=== PATIENT | female | born 1945 | race African-American/Black ===

== ENCOUNTER 2016-04-05 16:17 | Inpatient (IN) | payer MEDICARE, MEDICAID ==
[~2016-04-05] VITALS: Ht 157.5 cm; Wt 54.0 kg
[~2016-04-05 16:17] MED LIST: ALDACTONE 25MG25 M1 PO; ALLOPURINOL100 MG PO; AMITRIPTYLINE H25 M1 PO; APRESOLINE 25MG25 MG PO; ASPI325T6 PO; ASPIR-LOW81 MG PO; ASPIRIN 81M81 MG/TA2 PO; ASPIRIN E.C. 8181 MG PO; BENTYL 10MG10 MG/CAP PO; BYSTOLIC20 MG PO; CALCIUM CARB W/1 TA1 PO; CARAFATE 1GM1 G PO; CARISOPRODOL350 MG PO; CATAPRES 0.1MG0.1 MG PO; CATAPRES-TTS 10.1 M1 TD; CATAPRES-TTS 30.3 MG TD; CELEXA 20MG20 MG/TAB PO; COLACE 100100 MG/CAP PO; CYCLOBENZAPRINE10 MG PO; CYMBALTA 60MG60 MG PO; DUO-KAPS1 CAP PO; FERROUS SU325 MG/TAB PO; FOSAMAX PLUS D1 TAB PO; HCTZ 25MG25 MG PO; HCTZ12.5TAB PO; INDOMETHACIN50 MG PO; LIPITOR20 MG PO; LISINOPRIL PO; LOPRESSOR 550 MG/TAB PO; MULTAQ400 MG PO; NORCO 325 MG-51 TAB PO; NORVASC 10MG10 MG PO; NORVASC10 MG PO; PHENERGAN 25 TA25 MG PO; PREVACID 30MG30 M1 PO; PREVACID 30MG30 MG PO; PRINIVIL20 MG PO; PROAIR HFA0.09 MG/AC IH; RT ADVAIR 228 DISKUS IH; SPIRIVA INH IH; TOPROL XL100 MG PO; TUDORZA IH; VICODIN 5/5001 UDTAB PO; VITAMINC500CH PO; VOLTAREN GEL 1%1 TU TP; WELLBUTRIN XL300 M1 PO; XANAX0.25 MG PO; ZANTAC 150150 MG PO; ZESTRIL 10MG10 MG PO; ZESTRIL 20MG TA20 MG PO; ZYLOPRIM 100MG100 MG PO
[2016-04-05 16:40] VITALS: BP 180/67; PULSE 67; TEMP 99.9
[2016-04-05] MEDS ORDERED: LOPRESSOR 550 MG/TAB PO (16:41)
[2016-04-05] MEDS ORDERED: ASPIRIN 81M81 MG/TA2 PO (16:44)
[2016-04-05] MEDS ORDERED: LOVENOX 3030 MG/0.3 SQ (17:01)
[2016-04-05 18:04] VITALS: BP 179/77; PULSE 68; TEMP 99.6
[2016-04-05 18:39] LABS: BASO # 0.1 (0.0-0.2); BASO % 0.6 % (0.0-2.0); EOS # 0.2 (0.0-0.7); EOS % 2.1 % (0-4.0); GRAN # 7.2 (1.4-6.5); GRAN % 79.3 % (42.2-75.2); LYMPH # 0.8 (1.2-3.4); LYMPH % 8.5 % (20.0-51.0); MEAN CELL VOLUME 84 fl (80.0-100.0); MEAN CORPUSCULAR HGB CONC 32 g/dl (33.0-37.0); MEAN PLATELET VOLUME 11.7 fl (7.4-10.4); MONO # 0.8 (0.1-0.6); MONO % 9.3 % (1.7-9.3); PLATELET COUNT 148 K/mm3 (130-400); RED BLOOD COUNT 3.72 M/mm3 (4.10-5.30); REDCELL DISTRIBUTION WIDTH-CV 16.2 % (11.5-14.5)
[2016-04-05 18:46] LABS: HEMATOCRIT 31.4 % (37.0-47.0); HEMOGLOBIN 10.1 g/dl (12.5-16.0); MEAN CORPUSCULAR HEMOGLOBIN 27 pg (27.0-31.0)
[2016-04-05 18:51] LABS: ADJUSTED CALCIUM 9.8 mg/dL (8.4-10.2); ALBUMIN 3.4 gm/dL (3.5-5.0); BILIRUBIN,TOTAL 0.8 mg/dL (0.0-1.0); C-REACTIVE PROTEIN 2.9 mg/dL (0.0-0.9); CALCIUM 9.3 mg/dL (8.4-10.2); CREATININE, serum 1.6 mg/dL (0.52-1.25); INR 1.1 (0.8-3.0); POTASSIUM 4.9 mmol/L (3.4-5.0); PROTHROMBIN TIME 12.5 SECONDS (9.7-12.8); TOTAL PROTEIN 6.7 gm/dL (6.4-8.2)
[2016-04-05 19:11] LABS: ERYTHROCYTE SEDIMENTATION RATE 25 mm/hr (0-30)
[2016-04-05 20:43] VITALS: BP 158/66; PULSE 88; TEMP 98
[2016-04-05 21:31] LABS: PH 5 (5-8); SQUAMOUS EPITHELIAL 0-2 /hpf; URINE APPEARANCE Hazy; URINE BACTERIA Many /hpf; URINE BILIRUBIN Negative (NEGATIVE); URINE BLOOD Negative (NEGATIVE); URINE COLOR Yellow; URINE GLUCOSE Negative (NEGATIVE); URINE KETONE Negative (NEGATIVE); URINE RBC 0-2 /hpf; URINE UROBILINOGEN Negative (NEGATIVE); URINE WBC >50 /hpf
[2016-04-06] VITALS (8 sets, daily range): BP systolic 148–198; BP diastolic 64–81; PULSE 63–98; TEMP 98–98.9
[2016-04-06 11:04] LABS: ALBUMIN 2.9 gm/dL (3.5-5.0); CALCIUM 9.1 mg/dL (8.4-10.2); CREATININE, serum 1.41 mg/dL (0.52-1.25); POTASSIUM 5.2 mmol/L (3.4-5.0); TOTAL PROTEIN 5.9 gm/dL (6.4-8.2)
[2016-04-06 11:17] LABS: BILIRUBIN,DIRECT 0.4 mg/dL (0.0-0.4); BILIRUBIN,TOTAL 0.6 mg/dL (0.0-1.0)
[2016-04-07 00:29] VITALS: BP 154/80; PULSE 68
[2016-04-07 04:57] VITALS: BP 155/85; PULSE 65; TEMP 98
[2016-04-07 07:54] LABS: BASO % 0.4 % (0.0-2.0); EOS # 0.1 (0.0-0.7); EOS % 1.1 % (0-4.0); GRAN # 7.8 (1.4-6.5); GRAN % 81.9 % (42.2-75.2); LYMPH # 0.7 (1.2-3.4); LYMPH % 7.4 % (20.0-51.0); MEAN CELL VOLUME 87 fl (80.0-100.0); MEAN CORPUSCULAR HGB CONC 32 g/dl (33.0-37.0); MEAN PLATELET VOLUME 12.7 fl (7.4-10.4); MONO # 0.8 (0.1-0.6); MONO % 8.8 % (1.7-9.3); PLATELET COUNT 153 K/mm3 (130-400); RED BLOOD COUNT 3.25 M/mm3 (4.10-5.30); REDCELL DISTRIBUTION WIDTH-CV 16.4 % (11.5-14.5); WHITE BLOOD COUNT 9.5 K/mm3 (4.8-10.8)
[2016-04-07 08:00] LABS: HEMATOCRIT 28.1 % (37.0-47.0); HEMOGLOBIN 8.9 g/dl (12.5-16.0); MEAN CORPUSCULAR HEMOGLOBIN 27 pg (27.0-31.0)
[2016-04-07 08:10] LABS: ADJUSTED CALCIUM 9.6 mg/dL (8.4-10.2); BILIRUBIN,TOTAL 0.6 mg/dL (0.0-1.0); C-REACTIVE PROTEIN 6.5 mg/dL (0.0-0.9); CALCIUM 8.8 mg/dL (8.4-10.2); CREATININE, serum 1.4 mg/dL (0.52-1.25); POTASSIUM 4.7 mmol/L (3.4-5.0); TOTAL PROTEIN 6.3 gm/dL (6.4-8.2)
[2016-04-07 08:41] LABS: ERYTHROCYTE SEDIMENTATION RATE 38 mm/hr (0-30)
[2016-04-07 09:42] VITALS: BP 138/58; PULSE 63; TEMP 98.3
[2016-04-07 13:33] VITALS: BP 153/58; PULSE 67; TEMP 98.8
[2016-04-07 17:30] VITALS: BP 151/74; PULSE 71; TEMP 99.3
[2016-04-07 21:47] VITALS: BP 158/70; PULSE 65; TEMP 98.4
[2016-04-08] VITALS (13 sets, daily range): BP systolic 117–194; BP diastolic 56–71; PULSE 58–77; TEMP 98–100
[2016-04-08 07:36] LABS: BASO % 0.4 % (0.0-2.0); EOS # 0.2 (0.0-0.7); EOS % 2.5 % (0-4.0); GRAN # 7.7 (1.4-6.5); GRAN % 83.3 % (42.2-75.2); MEAN CELL VOLUME 87 fl (80.0-100.0); MEAN CORPUSCULAR HGB CONC 32 g/dl (33.0-37.0); MEAN PLATELET VOLUME 13.9 fl (7.4-10.4); MONO # 0.7 (0.1-0.6); MONO % 7.4 % (1.7-9.3); PLATELET COUNT 157 K/mm3 (130-400); RED BLOOD COUNT 3.15 M/mm3 (4.10-5.30); REDCELL DISTRIBUTION WIDTH-CV 16.4 % (11.5-14.5); WHITE BLOOD COUNT 9.2 K/mm3 (4.8-10.8)
[2016-04-08 08:06] LABS: ADJUSTED CALCIUM 10.1 mg/dL (8.4-10.2); ALBUMIN 2.8 gm/dL (3.5-5.0); BILIRUBIN,TOTAL 0.6 mg/dL (0.0-1.0); CALCIUM 9.1 mg/dL (8.4-10.2); CREATININE, serum 1.26 mg/dL (0.52-1.25); POTASSIUM 4.8 mmol/L (3.4-5.0); TOTAL PROTEIN 6.1 gm/dL (6.4-8.2)
[2016-04-08 08:16] LABS: HEMATOCRIT 27.5 % (37.0-47.0); HEMOGLOBIN 8.7 g/dl (12.5-16.0); MEAN CORPUSCULAR HEMOGLOBIN 28 pg (27.0-31.0)
[2016-04-08 08:17] LABS: LYMPH # 0.6 (1.2-3.4)
[2016-04-08 08:42] LABS: INR 1.2 (0.8-3.0); PROTHROMBIN TIME 13.1 SECONDS (9.7-12.8)
[2016-04-08 17:24] LABS: HEMATOCRIT 28.3 % (37.0-47.0); HEMOGLOBIN 8.7 g/dl (12.5-16.0)
[2016-04-09] VITALS (7 sets, daily range): BP systolic 117–143; BP diastolic 50–74; PULSE 58–70; TEMP 97.9–98.5
[2016-04-09 09:57] LABS: MEAN CELL VOLUME 88 fl (80.0-100.0); MEAN CORPUSCULAR HGB CONC 31 g/dl (33.0-37.0); MEAN PLATELET VOLUME 13.2 fl (7.4-10.4); PLATELET COUNT 213 K/mm3 (130-400); RED BLOOD COUNT 2.87 M/mm3 (4.10-5.30); REDCELL DISTRIBUTION WIDTH-CV 16.3 % (11.5-14.5); WHITE BLOOD COUNT 9.9 K/mm3 (4.8-10.8)
[2016-04-09 10:01] LABS: ALBUMIN 2.8 gm/dL (3.5-5.0); BILIRUBIN,TOTAL 0.5 mg/dL (0.0-1.0); CREATININE, serum 1.52 mg/dL (0.52-1.25); POTASSIUM 4.8 mmol/L (3.4-5.0); TOTAL PROTEIN 5.9 gm/dL (6.4-8.2)
[2016-04-09 10:15] LABS: ADD PATHOLOGY DIFF REVIEW NO; HEMATOCRIT 25.1 % (37.0-47.0); HEMOGLOBIN 7.8 g/dl (12.5-16.0); MEAN CORPUSCULAR HEMOGLOBIN 27 pg (27.0-31.0)
[2016-04-09 14:12] LABS: BAND 2 % (0-10); NEUTROPHILS 85 % (42.0-75.2); PLATELET ESTIMATE NORMAL (NORMAL); TOTAL CELLS COUNTED 100
[2016-04-09 14:14] LABS: ANISOCYTOSIS 1+; OVALOCYTES 1+; POIKILOCYTOSIS 2+; POLYCHROMASIA 1+; SCHISTOCYTES 1+
[2016-04-09 14:16] LABS: BURR CELLS 1+; TEAR DROP CELLS 1+
[2016-04-10] VITALS (10 sets, daily range): BP systolic 117–157; BP diastolic 49–66; PULSE 58–66; TEMP 97.9–99.1
[2016-04-10 08:24] LABS: CALCIUM 8.9 mg/dL (8.4-10.2); CREATININE, serum 1.91 mg/dL (0.52-1.25); POTASSIUM 4.6 mmol/L (3.4-5.0)
[2016-04-10 09:46] LABS: HEMATOCRIT 20.6 % (37.0-47.0); HEMOGLOBIN 6.4 g/dl (12.5-16.0)
[2016-04-11 01:46] VITALS: BP 142/63; PULSE 63; TEMP 98.6
[2016-04-11 06:31] VITALS: BP 169/75; PULSE 57; TEMP 98.4
[2016-04-11 07:23] LABS: MEAN CELL VOLUME 88 fl (80.0-100.0); MEAN CORPUSCULAR HGB CONC 32 g/dl (33.0-37.0); MEAN PLATELET VOLUME 12.9 fl (7.4-10.4); PLATELET COUNT 216 K/mm3 (130-400); RED BLOOD COUNT 2.96 M/mm3 (4.10-5.30); REDCELL DISTRIBUTION WIDTH-CV 15.6 % (11.5-14.5); WHITE BLOOD COUNT 6.1 K/mm3 (4.8-10.8)
[2016-04-11 07:28] LABS: HEMOGLOBIN 8.2 g/dl (12.5-16.0); MEAN CORPUSCULAR HEMOGLOBIN 28 pg (27.0-31.0)
[2016-04-11 07:41] LABS: CALCIUM 9.4 mg/dL (8.4-10.2); CREATININE, serum 1.71 mg/dL (0.52-1.25); POTASSIUM 4.5 mmol/L (3.4-5.0)
[2016-04-11 10:00] VITALS: BP 133/79; PULSE 54; TEMP 98
[2016-04-11] MEDS ORDERED: CIPRO 500MG TA500 MG PO (10:53)
[2016-04-11] MEDS ORDERED: APRESOLINE 25MG25 MG PO (10:55)
[2016-04-11] MEDS ORDERED: LOPRESSOR100 MG PO (10:56)
[2016-04-11] MEDS ORDERED: NORCO 325 MG-51 TAB PO (10:57)
[2016-04-11] MEDS ORDERED: GOOD SENSE400 MG/5 M PO (10:59)
[2016-04-11] MEDS ORDERED: SENOKOT S 50 MG1 TAB PO (11:00)
[2016-04-11] MEDS ORDERED: ASPIRIN 32325 MG/TAB PO (12:09)
[2016-04-11 12:41] VITALS: BP 133/79; PULSE 54; TEMP 98
[2016-04-11 13:12] VITALS: BP 133/79; PULSE 54; TEMP 98
== END 2016-04-11 13:40 | DRG 467 ==
LOC: MEDICAL 16:17 → SURG 16:31
PROVIDERS: Family Medicine; Internal Medicine; Orthopaedic Surgery; Physician Assistant
PROC: 0SJB3ZZ Inspection of Left Hip Joint, Percutaneous Approach (ICD-10-PCS; 2016-04-06)
PROC: 0SPE0JZ Removal of Synthetic Substitute from Left Hip Joint, Acetabular Surface, Open Approach (ICD-10-PCS; 2016-04-08)
PROC: 0SRB0JZ Replacement of Left Hip Joint with Synthetic Substitute, Open Approach (ICD-10-PCS; principal; 2016-04-08 13:00)
DX: T84.021A Dislocation of internal left hip prosthesis, initial encounter (principal); D62 Acute posthemorrhagic anemia; N39.0 Urinary tract infection, site not specified; N17.9 Acute kidney failure, unspecified; I12.9 Hypertensive chronic kidney disease with stage 1 through stage 4 chronic kidney disease, or unspecified chronic kidney disease; N18.3 Chronic kidney disease, stage 3 (moderate); I48.0 Paroxysmal atrial fibrillation; J44.9 Chronic obstructive pulmonary disease, unspecified; D63.1 Anemia in chronic kidney disease; I25.2 Old myocardial infarction; F03.90 Unspecified dementia, unspecified severity, without behavioral disturbance, psychotic disturbance, mood disturbance, and anxiety; I27.2 Other secondary pulmonary hypertension; Z87.891 Personal history of nicotine dependence; K21.9 Gastro-esophageal reflux disease without esophagitis; F32.9 Major depressive disorder, single episode, unspecified; B96.1 Klebsiella pneumoniae [K. pneumoniae] as the cause of diseases classified elsewhere; E87.5 Hyperkalemia
CPT/HCPCS: 99222-AI; 99232-AI; 99233-AI; 99239; A9284; C1713; C1776; J0360; J0690; J0696; J1100; J1650; J2270; J2405; J2704; J2765; J2795; J3010; J7030; J7120; P9016

== ENCOUNTER → 2016-08-29 | Outpatient (CLI) | payer MEDICARE, MEDICAID ==
[~2016-08-29] MED LIST changes: +ASPIRIN 32325 MG/TAB PO; +CIPRO 500MG TA500 MG PO; +GOOD SENSE400 MG/5 M PO; +LOPRESSOR100 MG PO; +LOVENOX 3030 MG/0.3 SQ; +SENOKOT S 50 MG1 TAB PO
== END ==
LOC: COL.RAD 09:02
DX: I71.4 Abdominal aortic aneurysm, without rupture (principal); K83.8 Other specified diseases of biliary tract; M43.16 Spondylolisthesis, lumbar region; S32.512K Fracture of superior rim of left pubis, subsequent encounter for fracture with nonunion; Z96.642 Presence of left artificial hip joint; Z90.49 Acquired absence of other specified parts of digestive tract
CPT/HCPCS: Q9967

== ENCOUNTER → 2017-09-25 | Outpatient (CLI) | payer MEDICARE, MEDICAID | LOC: COL.VAS 09-22 15:00 | DX: N18.4 Chronic kidney disease, stage 4 (severe) (principal) | CPT/HCPCS: G0365 ==

== ENCOUNTER 2019-10-14 23:21 | Inpatient (IN) | payer MEDICARE, MEDICAID ==
[~2019-10-14] VITALS: Ht 162.6 cm; Wt 49.2 kg
[~2019-10-14 23:21] MED LIST changes: +ALBUTEROL0.83 MG/ML IH; +APRESOLINE50 MG PO; +ARAVA 20MG TABL20 MG PO; +BONIVA150 MG PO; +CALCIUM 600MG+D1 TAB PO; +CELEXA10 MG PO; +COREG12.5 MG PO; +FERROUSAL325 MG PO; +FLONASEALLERGY NS; +LASIX 20MG TABL20 MG PO; +LIPITOR 10MG10 MG PO; +MAG-OX 400400 MG/TAB PO; +MILK OF MA1200 MG/5 PO; +MIRALAX PA17 GM/Dose PO; +PRIL40 PO; +TYLENOL 500MG500 MG PO
--- NOTE | 2019-10-14 23:32 | NUR ---
Received report from [facility] RN, Sara.
[2019-10-15] VITALS (1054 sets, daily range): BP systolic 129–270; BP diastolic 66–120; PULSE 63–75; TEMP 97.8–99.2; O2SAT 86–100
--- NOTE | 2019-10-15 01:32 | NUR ---
Patient arrives to ICU room 8 via EMS stretcher. Patient arrives on 2L via nasal cannula. Heparin and Nitro infusing to peripheral IV; both medications are put on standby until orders clarified with in-house hospitalist. Unable to obtain BP via [facility] monitor. Initial manual BP 270/120. Other vitals within normal limits. Patient denies any pain or discomfort. She is A&Ox4, pleasant, and answers all questions appropriately. Stacie notified of patient's arrival; received orders to hold the heparin drip and resume nitro. Nitro initiated at 10 mcg/min per orders and titrated accordingly. No further needs noted at this time. Will continue to monitor.
[2019-10-15 02:30] LABS: MAGNESIUM 1.5 mg/dL (1.6-2.3)
[2019-10-15 02:38] LABS: INR 1.1 (0.8-3.0); PROTHROMBIN TIME 12.4 SECONDS (9.7-12.8)
[2019-10-15 02:41] LABS: PARTIAL THROMBOPLASTIN TIME 37.2 SECONDS (26.0-37.0)
[2019-10-15 02:55] LABS: TROPONIN-I 0.061 ng/mL (0.000-0.035)
[2019-10-15] MEDS ORDERED: CATAPRES0.2 MG PO (03:35)
[2019-10-15] MEDS ORDERED: LASIX 20MG TABL20 MG PO (03:36)
[2019-10-15] MEDS ORDERED: BENTYL 20MG20 MG/TAB PO (03:36)
[2019-10-15] MEDS ORDERED: CELEXA 20MG20 MG/TAB PO (03:38)
[2019-10-15] MEDS ORDERED: IPRATROPIUM BROM3 M1 IH (03:41)
--- NOTE | 2019-10-15 04:00 | NUR ---
Still unable to obtain BP via [facility] monitor. Manual BPs taken every 10-15 mins, titrating nitro accordingly. Stacie at the bedside throughout titrations, who is collaborating cares with AISHWARYA. At this time, nitro is at 55 mcg/min and BPs are still 220s/210s range. Received orders to administer additional IV and oral anti-hypertensives and to continue to titrate nitro up per orders. Clarified with Stacie orders to administer both IV and PO routes of hydralazine.
--- NOTE | 2019-10-15 04:50 | NUR ---
Notified Stacie of downward-trending BPs obtained via [facility] monitor. BPs are 196/90 and 186/87 within a 10-minute window. Will continue to monitor.
--- NOTE | 2019-10-15 05:27 | NUR ---
Notified Stacie of SBPs 120s-130s. Beginning to titrate down nitro at this time.
[2019-10-15 06:15] LABS: MEAN CELL VOLUME 81 fl (80.0-100.0); MEAN CORPUSCULAR HGB CONC 31 g/dl (33.0-37.0); PLATELET COUNT 99 K/mm3 (130-400); RED BLOOD COUNT 2.39 M/mm3 (4.10-5.30); REDCELL DISTRIBUTION WIDTH-CV 17.8 % (11.5-14.5)
[2019-10-15 06:25] LABS: ALBUMIN 2.9 gm/dL (3.5-5.0); BILIRUBIN,TOTAL 0.4 mg/dL (0.0-1.0); CALCIUM 8.3 mg/dL (8.4-10.2); CREATININE, serum 2.68 (0.52-1.25); POTASSIUM 4.2 mmol/L (3.4-5.0); TOTAL PROTEIN 6.1 gm/dL (6.4-8.2)
[2019-10-15 06:31] LABS: HEMATOCRIT 19.3 % (37.0-47.0); MEAN CORPUSCULAR HEMOGLOBIN 25 pg (27.0-31.0)
[2019-10-15 06:34] LABS: HEMOGLOBIN 5.9 g/dl (12.5-16.0)
--- NOTE | 2019-10-15 06:36 | NUR ---
Notified AISHWARYA of critical hemoglobin of 5.9. No obvious signs of bleeding noted. Vitals remain within normal limits. BP is 159/84 at this time; nitro is infusing at 10 mcg/min. Notified AISHWARYA of pending type and screen; received orders to infuse one unit of PRBCs. Will continue to monitor.
[2019-10-15 06:41] LABS: TROPONIN-I 0.056 ng/mL (0.000-0.035)
[2019-10-15 07:28] LABS: ANISOCYTOSIS 1+; BAND 1 % (0-10); NEUTROPHILS 97 % (42.0-75.2); PLATELET ESTIMATE DECREASED (NORMAL); SCHISTOCYTES 1+; TARGET CELLS 1+
[2019-10-15 07:29] LABS: HYPOCHROMIA 2+
[2019-10-15 07:30] LABS: OVALOCYTES 1+
--- NOTE | 2019-10-15 09:00 | NUR ---
Patient left for CT at [address] staff. Able to pvot transfer with minimal assist of 1 staff member to wheelchair. Patient returned from CT via wheelchair at 0900. [place]ack replaced at this time as well. IV infusing well.
--- NOTE | 2019-10-15 11:20 | NUR ---
Dr. Delgado in with patient at this time
--- NOTE | 2019-10-15 11:43 | NUR ---
Installation Engineer contacted patient by phone to discuss discharge planning as she is in contact isolation. Patient lives alone in [place] and sees Dr. Barajas for primary care. Patient has medications delivered to her home by [facility] and reports she has a cane, two walkers, and a wheelchair. Patient reports she fractured her ankle a while back so she mostly uses her wheelchair to be careful not to hurt her ankle again. Patient reports she is mostly independent with ADLS but also has in home services from [facility] and [facility]. Patient states she also has a shower chair and wears briefs at home. Patient states she makes her own breakfast and lunch, but that her worker from [facility] makes her dinner and does her grocery shopping. Patient does not have Advance Directives but lists her daughter, Elizabeth (ph#[phone]) as her emergency contact. Patient also has another daughter, Kimberley (ph#[phone]). Both daughters live in [place]. Patient states she plans to return home upon discharge. Patient is concerned about getting a ride home but SW advised that her Medicaid Transport could provide her a ride home. JULES contacted Delaney at [facility] who advised patient currently receives detention from them and was discharged from PT/OT on 10/02/19. JULES contacted Wendy at [facility] who advised they provide in home supports including housekeeping, laundry, meal preparation, bathing, and dressing/grooming. SW contacted patient's daughter, Elizabeth who was not aware her mom was in the hospital. Elizabeth reports as far as she knows, patient has been doing just fine at home. SW will continue to follow.
[2019-10-15 11:47] LABS: IRON,SERUM 30 ug/dL (35-150)
[2019-10-15 11:56] LABS: TOTAL IRON BINDING CAPACITY 240 ug/dL (265-497)
--- NOTE | 2019-10-15 12:10 | NUR ---
Dr. Delgado in with patient.
[2019-10-15 17:38] LABS: HEMATOCRIT 22.8 % (37.0-47.0); HEMOGLOBIN 7.3 g/dl (12.5-16.0)
[2019-10-16] VITALS (691 sets, daily range): BP systolic 130–190; BP diastolic 60–94; PULSE 55–68; TEMP 98.1–98.9; O2SAT 91–100
--- NOTE | 2019-10-16 01:49 | NUR ---
Resting in bed with eyes shut. PRN hydralazine administered for hypertension. Assisted with repositioning. Denies any other needs or concerns at this time. Call light left within reach.
--- NOTE | 2019-10-16 04:20 | NUR ---
Hospitalist notified of patient's elevated BP's. Received one time order for PRN hydralazine.
[2019-10-16 07:32] LABS: BASO % 0.7 % (0.0-2.0); EOS # 0.1 (0.0-0.7); EOS % 2.5 % (0-4.0); GRAN # 4.4 (1.4-6.5); GRAN % 79.1 % (42.2-75.2); LYMPH # 0.3 (1.2-3.4); LYMPH % 5.8 % (20.0-51.0); MEAN CELL VOLUME 82 fl (80.0-100.0); MEAN CORPUSCULAR HGB CONC 32 g/dl (33.0-37.0); MONO # 0.6 (0.1-0.6); MONO % 11.5 % (1.7-9.3); PLATELET COUNT 122 K/mm3 (130-400); RED BLOOD COUNT 2.82 M/mm3 (4.10-5.30); REDCELL DISTRIBUTION WIDTH-CV 17.6 % (11.5-14.5)
[2019-10-16 07:35] LABS: HEMATOCRIT 23.1 % (37.0-47.0); HEMOGLOBIN 7.3 g/dl (12.5-16.0); MEAN CORPUSCULAR HEMOGLOBIN 26 pg (27.0-31.0)
[2019-10-16 07:46] LABS: PH 5 (5-8); SQUAMOUS EPITHELIAL 0-2 /hpf; URINE APPEARANCE Clear; URINE BACTERIA None Seen /hpf; URINE BILIRUBIN Negative (NEGATIVE); URINE BLOOD Negative (NEGATIVE); URINE COLOR Yellow; URINE GLUCOSE Negative (NEGATIVE); URINE KETONE Negative (NEGATIVE); URINE LEUKOCYTE ESTERASE Negative (NEGATIVE); URINE NITRATE Negative (NEGATIVE); URINE PROTEIN(semi-quant) 2+ (NEGATIVE); URINE RBC 0-2 /hpf; URINE UROBILINOGEN Negative (NEGATIVE)
[2019-10-16 07:46] LABS: BILIRUBIN,TOTAL 0.6 mg/dL (0.0-1.0); CALCIUM 8.2 mg/dL (8.4-10.2); CREATININE, serum 3.58 (0.52-1.25); POTASSIUM 4.4 mmol/L (3.4-5.0)
--- NOTE | 2019-10-16 09:05 | NUR ---
Initial visit; Flat Screen Worker spoke with patient from the door due to Isolation. Patient thanked Flat Screen Worker for looking in on her and offering God's blessings and keeping her in Flat Screen Worker's prayers.
[2019-10-16 10:58] LABS: COLLECTION METHOD CLEAN CATCH
--- NOTE | 2019-10-16 11:28 | NUR ---
Shaper Machine Hand contacted patient's daughter, Elizabeth to check in. Elizabeth reports all six of patient's children live in [place]. Elizabeth reports her siblins are Kimberley, Anival, Yojana, Luciano, and Lucien. SW attended clinical rounds and will continue to follow.
--- NOTE | 2019-10-16 15:14 | NUR ---
Pt up to room 318, contact precautions per MRSA results. pt assisted to bed, 1-2 assist, pivot transfer, oriented to room. Call light within reach.
--- NOTE | 2019-10-16 18:12 | NUR ---
Pt up to room 318, A&O. Pt on room air, breathing is even and unlabored, upper lobes bilaterally CTA, bases diminshed. RWR INT IV flushes w/o difficulty. Pt on tele, NS. BS active. No edema noted, pulses strong bilaterally. Pt denies SOB, N/V/D, abdominal pain, chest pain, dizziness. No skin issues noted. Pt tolerated PO meds well. No further needs expressed. Pt checked and changed, incontinent, unable to voice when she needs to go.
--- NOTE | 2019-10-16 20:00 | NUR ---
Received report from ASHLEY Agosto. A/Ox4. denies any pain or discomfort at this time. Scheduled meds adminsitered. Pt able to voice needs. INT to RW intact, flushed, dressing CDI. Contact precuations remains in place. Pt understands NPO at midnight in preparation for procedur in AM. Tele monitor in place. Briefs checked and dry at this time. Will monitor pt. call light within reach.
[2019-10-17] VITALS (15 sets, daily range): BP systolic 139–201; BP diastolic 58–92; PULSE 59–67; TEMP 97.7–98.8
--- NOTE | 2019-10-17 05:58 | NUR ---
Pt uneventful during this shift. Made no complaints. Remained NPO since midnight. Had AM meds with small sip of water. Incontinent of urine, briefs changed. Call light within reach.
--- NOTE | 2019-10-17 06:55 | NUR ---
Report given to ASHLEY Agosto.
--- NOTE | 2019-10-17 07:45 | NUR ---
Pt A&O, laying in bed, going down for upper endo procedure at this time. All questions answered. No further needs, pre op fluids hanging.
[2019-10-17 09:08] LABS: CREATININE, serum 3.51 (0.52-1.25); MAGNESIUM 1.8 mg/dL (1.6-2.3); POTASSIUM 4.4 mmol/L (3.4-5.0)
[2019-10-17 09:17] LABS: BASO % 0.4 % (0.0-2.0); EOS # 0.2 (0.0-0.7); EOS % 4.2 % (0-4.0); GRAN # 3.2 (1.4-6.5); LYMPH # 0.5 (1.2-3.4); LYMPH % 11.4 % (20.0-51.0); MEAN CELL VOLUME 82 fl (80.0-100.0); MEAN CORPUSCULAR HGB CONC 32 g/dl (33.0-37.0); MONO # 0.6 (0.1-0.6); MONO % 12.1 % (1.7-9.3); PLATELET COUNT 93 K/mm3 (130-400); RED BLOOD COUNT 2.48 M/mm3 (4.10-5.30); REDCELL DISTRIBUTION WIDTH-CV 18.1 % (11.5-14.5)
[2019-10-17 09:34] LABS: HEMATOCRIT 20.4 % (37.0-47.0); HEMOGLOBIN 6.5 g/dl (12.5-16.0); MEAN CORPUSCULAR HEMOGLOBIN 26 pg (27.0-31.0)
--- NOTE | 2019-10-17 11:57 | NUR ---
Pt in recliner. chair alarm on. Pt informed that FINGERPRINT CLASSIFIER would be in to assist in getting pt ready for discharge, pt verbalized understanding. Pt then up on own to go to bathroom. This nurse informed pt that she needed to call for help and educated her on being a fall risk. Pt stated she "hasn't fell since shes been here and only falls at home". Pt educated on still using call light for assistance.
--- NOTE | 2019-10-17 17:57 | NUR ---
Pt blood tranfusion started to 20G LFA IV. Vitals obtained prior, VSS. Pt sleeping in bed. No further needs expressed. PRBC transfusing at 60ml/hr, tolerating well at this time. This nurse remaining at pt bedside first 15 min.
--- NOTE | 2019-10-17 18:11 | NUR ---
Pt sleeping in bed, tolerating blood transfusion well. VSS. Rate increased to 100ml/hr. this nurse remained at pt bedside for first 15 min.
--- NOTE | 2019-10-17 19:08 | NUR ---
pt sleeping, VSS. SBP fluctuating. PRBC rate increased to 125ml/hr, tolerating well to LFA IV site. No further needs. report given to jcarlos swartz.
--- NOTE | 2019-10-17 20:30 | NUR ---
Received report from ASHLEY Agosto. Pt sleeping during shift change and receiving 1PRBC at this time. 1PRBC complete, tolerated well, BP elevated, scheduled meds administered. Pt denies any pain or any discomfort at this time. Ate 50% of her dinner after completion of PRBC. LFA INT intact, flushed, dressing CDI. Tele monitor in place. INT to RFA leaking, DC'd with catheter intact, bandaid placed. Needs met. Call light within reach.
--- NOTE | 2019-10-17 23:58 | NUR ---
Elevated BP 201/71. Pt states having a slight headache. 10mg hydralazine prn ordered from MARYAM jules. Administered to LFA INT. Will monitor bp.
[2019-10-18] VITALS (10 sets, daily range): BP systolic 124–226; BP diastolic 55–95; PULSE 56–66; TEMP 97.8–98.5
--- NOTE | 2019-10-18 03:39 | NUR ---
Elevated BP 226/95 with c/o headache. Notified Dr Cruz and x1 order now of 10mg hydralazine ordered and administered. Will monitor.
--- NOTE | 2019-10-18 05:30 | NUR ---
Incontinent of urine, briefs changed. Pt stated " I can't breath." Pt not laying comfortbly in bed and has stuffy nose. Repositioned pt in bed, elevated HOB, on RA, SpO2 96%. Pt comfortable. Call light within reach.
--- NOTE | 2019-10-18 06:59 | NUR ---
Report given to ASHLEY Howell.
[2019-10-18 07:33] LABS: BASO % 0.6 % (0.0-2.0); EOS # 0.2 (0.0-0.7); EOS % 3.8 % (0-4.0); GRAN % 81.2 % (42.2-75.2); LYMPH # 0.2 (1.2-3.4); LYMPH % 4.5 % (20.0-51.0); MEAN CELL VOLUME 84 fl (80.0-100.0); MEAN CORPUSCULAR HGB CONC 32 g/dl (33.0-37.0); MONO # 0.5 (0.1-0.6); MONO % 9.5 % (1.7-9.3); PLATELET COUNT 97 K/mm3 (130-400); RED BLOOD COUNT 2.96 M/mm3 (4.10-5.30); REDCELL DISTRIBUTION WIDTH-CV 17.7 % (11.5-14.5)
[2019-10-18 07:34] LABS: HEMATOCRIT 24.8 % (37.0-47.0); HEMOGLOBIN 7.9 g/dl (12.5-16.0); MEAN CORPUSCULAR HEMOGLOBIN 27 pg (27.0-31.0)
[2019-10-18 07:44] LABS: CALCIUM 8.3 mg/dL (8.4-10.2); CREATININE, serum 3.18 (0.52-1.25); POTASSIUM 4.3 mmol/L (3.4-5.0)
--- NOTE | 2019-10-18 08:00 | NUR ---
Patient in bed resting. Alert and oriented x 3. Assessment complete. Denies pain or further needs at this time.
--- NOTE | 2019-10-18 11:20 | NUR ---
Patient sitting up in recliner, assisted patient to resposition. Denies pain or further needs at this time
--- NOTE | 2019-10-18 12:28 | NUR ---
Radiology in for renal US
--- NOTE | 2019-10-18 15:29 | NUR ---
Notified hospitalist of renal US.
--- NOTE | 2019-10-18 16:01 | NUR ---
Bottom Cager met with the patient to revisit the discharge plans to return home with [employer]ible [employer]. The patient is currently on 1L of oxygen. Per nurse they will try to wean her off this day. Will continue to monitor.
--- NOTE | 2019-10-18 22:48 | NUR ---
Received report from ASHLEY Howell. Pt resting in bed watching tv. states she has a headache. Scheulded meds and prn tylenol adminsitered. INT to LFA intact, flushed, dressing CDI. Tele monitor in place. RT placed pt on RA, SPO2 97% while on 1LO2NC. Will monitor pt. Needs met. Call light within reach.
[2019-10-19] VITALS (11 sets, daily range): BP systolic 153–200; BP diastolic 61–88; PULSE 54–60; TEMP 97.4–98.3
--- NOTE | 2019-10-19 05:41 | NUR ---
Elevated BP at 2330. PRN hydralazine administered. BP remained elevated at 0330 however unable to administer prn hydralazine as orders are Q6. Notified Dr Ortega and ordered x1 0.1mg clonidine. Administered. will monitor bp.
[2019-10-19 07:42] LABS: CALCIUM 8.1 mg/dL (8.4-10.2); CREATININE, serum 2.89 (0.52-1.25); MAGNESIUM 1.7 mg/dL (1.6-2.3); POTASSIUM 4.4 mmol/L (3.4-5.0)
[2019-10-19 08:31] LABS: BASO % 0.6 % (0.0-2.0); EOS # 0.3 (0.0-0.7); EOS % 5.3 % (0-4.0); GRAN # 3.8 (1.4-6.5); GRAN % 74.9 % (42.2-75.2); LYMPH # 0.4 (1.2-3.4); LYMPH % 8.1 % (20.0-51.0); MEAN CELL VOLUME 84 fl (80.0-100.0); MEAN CORPUSCULAR HGB CONC 32 g/dl (33.0-37.0); MONO # 0.5 (0.1-0.6); MONO % 10.7 % (1.7-9.3); PLATELET COUNT 92 K/mm3 (130-400); RED BLOOD COUNT 2.89 M/mm3 (4.10-5.30); REDCELL DISTRIBUTION WIDTH-CV 17.9 % (11.5-14.5)
[2019-10-19 08:34] LABS: HEMATOCRIT 24.3 % (37.0-47.0); HEMOGLOBIN 7.8 g/dl (12.5-16.0); MEAN CORPUSCULAR HEMOGLOBIN 27 pg (27.0-31.0)
--- NOTE | 2019-10-19 08:44 | NUR ---
Pt assessment completed and charted. medications administered per mar, tolerated well. Pt sitting in bed eating breakfast. Pt A&O, denies pain, chest pain, dizziness, N/V/D. Pt states she has some indigestion and feels a little of SOB but is satting well on room air. LS cta, heart RRR, BS active X4, pulses strong bilaterally. LFA INT IV flushes w/o complications. Pt BP 166/61, PRN hydralazine not required. No further needs expressed at this time. Call light within reach.
--- NOTE | 2019-10-19 12:08 | NUR ---
Pt laying in bed, pt called to say she felt like she couldn't breathe. VS checked, VSS, satting 94% on room air, put pt on 1L NC for comfort. States she thinks her "nose is stuffy". Will monitor. Tylenol administered per APR. No further needs.
--- NOTE | 2019-10-19 18:19 | NUR ---
Pt SBP 198, scheduled hydralazine and PRN hydralazine given per APR, will recheck BP. Pt c/o neck pain after being sat up for dinner, provided w/ warm blanket to neck and repositioned. Pt refused dinner after, was "no longer hungry".
--- NOTE | 2019-10-19 19:15 | NUR ---
Leonid Bustillo with Nephrology give both doses of cozaar ordered this evening.
--- NOTE | 2019-10-19 19:18 | NUR ---
Pt BP rechecked during bedside report, 172/72 at this time. Report given to ASHLEY Kenney.
--- NOTE | 2019-10-19 20:00 | NUR ---
Resting in bed. Assessment complete. Lungs clear. Heart sounds normal. Bowels active x4. Pulses present throughout. No edema noted. INT left forearm without complications. Reports 10/10 neck pain and given PRN tylenol. Patient BP elevated. Given schedule BP meds and will reassess BP. Denies other needs at this time. Call light in reach.
--- NOTE | 2019-10-19 22:00 | NUR ---
Patient given second dose of cozaar. Will monitor.
--- NOTE | 2019-10-19 23:32 | NUR ---
Patient BP continues to be elevated. Given PRN hydralazine. Will monitor.
[2019-10-20] VITALS (13 sets, daily range): BP systolic 149–222; BP diastolic 63–86; PULSE 50–65; TEMP 97.4–98.2
--- NOTE | 2019-10-20 00:36 | NUR ---
Attempted to contact Dr. Cruz regarding patient BP at this time. No answer and unable to leave voicemail. Will keep trying
--- NOTE | 2019-10-20 01:18 | NUR ---
Per Dr. Cruz give 10mg IV hydralazine now and recheck BP in one hour
--- NOTE | 2019-10-20 01:46 | NUR ---
Patient BP decreased on recheck. Dr. Cruz updated. Holding hydralazine.
--- NOTE | 2019-10-20 05:40 | NUR ---
Patient BP at 0400 was 222 systolic. Gave x1 dose of hydralazine per Dr. Cruz at 0420. Rechecked now and 196/78. Per Dr. Cruz give another dose of hydralazine 10mg IV. Will provide to patient
--- NOTE | 2019-10-20 06:18 | NUR ---
Patient BP elevated throughout night. Received x3 doses of hydralazine plus schedule BP meds. Dr. Cruz updated throughout night and this AM. Also given tylenol x3 doses for neck pain. Will continue to monitor.
--- NOTE | 2019-10-20 07:30 | NUR ---
Report given to ASHLEY Agosto
[2019-10-20 08:00] LABS: BASO % 0.9 % (0.0-2.0); EOS # 0.3 (0.0-0.7); EOS % 6.5 % (0-4.0); GRAN # 3.1 (1.4-6.5); GRAN % 71.9 % (42.2-75.2); LYMPH # 0.4 (1.2-3.4); LYMPH % 9.1 % (20.0-51.0); MEAN CELL VOLUME 85 fl (80.0-100.0); MEAN CORPUSCULAR HGB CONC 32 g/dl (33.0-37.0); MEAN PLATELET VOLUME 13.8 fl (7.4-10.4); MONO # 0.5 (0.1-0.6); MONO % 11.4 % (1.7-9.3); PLATELET COUNT 121 K/mm3 (130-400); RED BLOOD COUNT 2.92 M/mm3 (4.10-5.30); REDCELL DISTRIBUTION WIDTH-CV 18.1 % (11.5-14.5)
[2019-10-20 08:03] LABS: HEMATOCRIT 24.8 % (37.0-47.0); HEMOGLOBIN 7.8 g/dl (12.5-16.0); MEAN CORPUSCULAR HEMOGLOBIN 27 pg (27.0-31.0)
[2019-10-20 08:09] LABS: CALCIUM 8.4 mg/dL (8.4-10.2); CREATININE, serum 2.84 (0.52-1.25); POTASSIUM 4.4 mmol/L (3.4-5.0)
--- NOTE | 2019-10-20 09:15 | NUR ---
Pt assessment completed and charted. Medications administered per mar. Pt is A&O, sitting in bed, finished up breakfast. Pt c.o terrible neck pain, unable to describe, says "it just hurts a lot when i move it". Pt was repositioned, incontinent care provided, bed change complete. Pt has LFA INT IV that flushes w/o issue. Pt on room air at this time, states she has SOB "sometimes", satting well. LS cta, HRRR, occasionally candelario. BS active. Pt denies chest pain, n/v/d. BP checked at shift change, still high but had improved. This nurse rechecked manual BP, 190/72 and then another automatic checked on opposite arm, 194/68. Pt is in a sig. amt of pain w/ neck. Tylenol administered per APR, PRN hydralazine administered per apr for BP. Discussed w/ MARYAM Mullen. Continuing to monitor and pt voices no other concerns at this time.
--- NOTE | 2019-10-20 13:37 | NUR ---
Pt VS obtained, BP 152/67, has improved. New BP medication ordered per ASHLEY Cross (w/ Dr. Worrell). Will monitor. Pt denied need for pain medication, states neck pain has improved "some".
--- NOTE | 2019-10-20 16:17 | NUR ---
Pt requested tylenol PRN, administered per APR. BP is still doing well, SBP 149 last reading, will continue to monitor. No further needs at this time.
--- NOTE | 2019-10-20 20:00 | NUR ---
Report received, assumed care for night time nanny. Assessment complete. A&Ox3. VS stable. Denies pain/shortness of breath/nausea. INT to left FA flushes without difficulty. CUrrently on room air. Plan of care discussed for this shift to include HS meds/pain meds/nausea meds. Verbalizes understanding. Denies needs. Call light in reach/bed alarm on. Will monitor.
--- NOTE | 2019-10-20 22:30 | NUR ---
Called with c/o pain to neck-rating pain 6/10 on pain scale-described as constant ache. Tylenol given per dr han.
--- NOTE | 2019-10-20 23:33 | NUR ---
Resting eyes closed. No s/s of pain noted.
[2019-10-21 00:28] VITALS: BP 142/65; PULSE 54; TEMP 97.8
--- NOTE | 2019-10-21 02:30 | NUR ---
Called with c/o pain to neck-described as constant ache-rating pain 4/10 on pain scale. Tyelnol given per dr han
[2019-10-21 04:29] VITALS: BP 171/66; PULSE 59; TEMP 97.6
--- NOTE | 2019-10-21 05:03 | NUR ---
Rested well this shift. Received tylenol x2 due to neck pain. Blood pressure remained under need for hydralazine. Tolerating PO. Denies needs. Call light in reach. Will monitor.
[2019-10-21 07:27] VITALS: BP 158/60; PULSE 57; TEMP 97.7
--- NOTE | 2019-10-21 08:00 | NUR ---
PATIENT IS A&O AND SITTING UP IN BED. HEART RATE IS SR IN THE 50-60'S ON TELE. DENIES CHEST PAIN OR SOA. B/P IS BETTER. PATIENT DOES STILL C/O OCCATIONAL ACOSTA, TYLENOL GIVEN WITH AM MEDS. PATIENT EATING BREAKFAST. NO C/O N/V. LEFT FORARM IV TO INT. HEAD TO TOE ASSESSMENT COMPLETE. PATIENT HOPING TO DISCHARGE HOME WITH HH LATER TODAY. NO OTHER NEEDS. CALL LIGHT IN REACH.
[2019-10-21] MEDS ORDERED: CATAPRES0.3 MG PO (08:25)
[2019-10-21] MEDS ORDERED: APRESOLINE50 MG PO (08:29)
[2019-10-21] MEDS ORDERED: MINOXIDIL 2.5 PO (08:30)
[2019-10-21] MEDS ORDERED: ISOSORBIDE MON120 MG PO (08:36)
[2019-10-21] MEDS ORDERED: COREG 25MG25 MG/TAB PO (08:36)
[2019-10-21] MEDS ORDERED: LASIX 40MG TABL40 MG PO (08:37)
[2019-10-21 11:32] VITALS: BP 105/49; PULSE 53; TEMP 97.7
[2019-10-21 12:15] VITALS: BP 151/56
--- NOTE | 2019-10-21 16:00 | NUR ---
PATIENT DISCHARGING HOME WITH [facility] CHATTERJEE AND SERVICES. GAVE DISCHARGE INSTRUCTIONS, SCRIPTS SENT TO PHARMACY AND F/U APT DISCUSSED. ANSWERED ALL QUESTIONS/CONCERNS. DC'D LEFT FORARM IV, COVERED SITE WITH [employer]. DC'D TELE. PATIENT ASSISTED TO GET DRESSED AND PACK BELONGINGS. PATIENT DISCHARGED.
--- NOTE | 2019-10-21 16:13 | NUR ---
Instructor Wastewater Treatment Plant attended clinical rounds with the team and patient to discharge today. Patient still plans to return home upon discharge with continued Home Health and Personal Care Services. JULES contacted patient by phone to read IM form aloud. Patient verbalized understanding and provided verbal consent as signature. JULES placed form on chart. JULES contacted Delaney at [facility] and faxed orders for PT/OT/Nursing. JULES also contacted Lissa at [facility] to notify of discharge. JULES contacted patient's daughter, Elizabeth to update on discharge. Elizabeth is in agreement with discharge plan. JULES contacted [employer] and set up a ride home for patient (trip #[id number]). JULES contacted Nigel (ph#[phone]), patient's [facility] worker to notify her patient is on her way home. Nigel to meet patient at home to get her settled. No additional needs at this time.
== END 2019-10-21 16:00 | disposition home health service (06) | DRG 280 ==
LOC: ICU 23:21 → MEDICAL 10-15 01:33
PROVIDERS: Nurse Practitioner Family; Physician Assistant; ADMIT Hospitalist
DX: I16.1 Hypertensive emergency (principal); I21.A1 Myocardial infarction type 2; E43 Unspecified severe protein-calorie malnutrition; N18.4 Chronic kidney disease, stage 4 (severe); Z68.1 Body mass index [BMI] 19.9 or less, adult; I31.3 Pericardial effusion (noninflammatory); I50.32 Chronic diastolic (congestive) heart failure; E78.5 Hyperlipidemia, unspecified; M81.0 Age-related osteoporosis without current pathological fracture; I48.0 Paroxysmal atrial fibrillation; G89.29 Other chronic pain; M54.9 Dorsalgia, unspecified; E83.51 Hypocalcemia; K21.9 Gastro-esophageal reflux disease without esophagitis; I13.0 Hypertensive heart and chronic kidney disease with heart failure and stage 1 through stage 4 chronic kidney disease, or unspecified chronic kidney disease; D50.9 Iron deficiency anemia, unspecified; D63.1 Anemia in chronic kidney disease; E83.42 Hypomagnesemia; I34.0 Nonrheumatic mitral (valve) insufficiency; D69.6 Thrombocytopenia, unspecified; I25.10 Atherosclerotic heart disease of native coronary artery without angina pectoris; M06.9 Rheumatoid arthritis, unspecified; K55.20 Angiodysplasia of colon without hemorrhage; F32.9 Major depressive disorder, single episode, unspecified; Z90.49 Acquired absence of other specified parts of digestive tract; Z90.711 Acquired absence of uterus with remaining cervical stump; Z87.891 Personal history of nicotine dependence
CPT/HCPCS: 99223-AI; 99232-AI; 99233-AI; 99239; A9540; A9567; C9113; J0360; J1940; J2704; J2916; J3475; J7030; P9016